=== PATIENT | female | born 1960 | race Caucasian/White ===

== ENCOUNTER → 2020-01-07 | Outpatient (CLI) | payer BC ==
[2020-01-07 13:04] LABS: Basophils # (A) 0.1 k/uL (0-0.2); Basophils % (A) 1 %; Eosinophils # (A) 0.1 k/uL (0-0.7); Eosinophils % (A) 1 %; HCT 45.8 % (34.0-46.0); HGB 15.5 gm/dL (11.4-16.0); Lymphocytes # (A) 0.6 k/uL (1.0-4.8); Lymphocytes % (A) 10 %; MCH 30.5 pg (25.0-35.0); MCHC 33.9 g/dL (31.0-37.0); MCV 90.1 fL (80.0-100.0); Mean Platelet Volume 6.9; Monocytes # (A) 0.4 k/uL (0-1.0); Monocytes % (A) 7 %; Neutrophils # (A) 4.7 k/uL (1.3-7.7); Neutrophils % (A) 78 %; Platelet Count 274 k/uL (150-450); RBC 5.08 m/uL (3.80-5.40); RDW 12.8 % (11.5-15.5)
--- NOTE | 2020-01-07 13:04 | US ---
EXAMINATION TYPE: US thyroid st tissue head/neck DATE OF EXAM: 01/07/2020 COMPARISON: NONE CLINICAL HISTORY: E04.9 Nontoxic goiter, unspecified. GLAND SIZE: Right Lobe: 5.0 x 1.6 x 1.6 cm Overall Parenchyma: homogenous Left Lobe: 4.8 x 1.0 x 1.6 cm Overall Parenchyma: homogeneous Isthmus Thickness: 0.3 cm NODULES RIGHT: # of nodules measured on right: 0 LEFT: # of nodules measured on left: 0 ISTHMUS: # of nodules measured in the isthmus: 0 Bilateral neck scanned, no evidence of lymphadenopathy. IMPRESSION: Mildly enlarged thyroid gland without discrete nodule.
[2020-01-07 13:18] LABS: ALT 13 U/L (4-34); AST 21 U/L (14-36); African American GFR (CKD) >90 (>60 ml/min/1.73 sqM); Albumin 4.3 g/dL (3.5-5.0); Alkaline Phosphatase 48 U/L (38-126); Anion Gap 7 mmol/L; Blood Urea Nitrogen 14 mg/dL (7-17); Calcium 9.9 mg/dL (8.4-10.2); Carbon Dioxide 27 mmol/L (22-30); Chloride 103 mmol/L (98-107); Glucose 86 mg/dL (74-99); Non-African American GFR(CKD) >90 (>60 ml/min/1.73 sqM); Potassium 4.1 mmol/L (3.5-5.1); Sodium 137 mmol/L (137-145); Total Bilirubin 0.6 mg/dL (0.2-1.3)
[2020-01-07 13:54] LABS: Erythrocyte Sedimentation Rate 6 mm/hr (0-20)
[2020-01-07 19:51] LABS: Thyroid Peroxidase Antibodies 30.1 U/mL (0.0-60.0)
== END | disposition home or self-care (01) ==
LOC: RADUSWWP 11:37
PROVIDERS: ATTEND Allergy & Immunology
DX: E04.9 Nontoxic goiter, unspecified (principal); L50.8 Other urticaria
CPT/HCPCS: 36415; 76536; 80053; 82785; 85025; 85652; 86376; 86800

== ENCOUNTER → 2021-09-29 | Outpatient (CLI) | payer BC ==
--- NOTE | 2021-09-30 01:50 | MR ---
EXAMINATION TYPE: MR shoulder LT wo con DATE OF EXAM: 09/29/2021 COMPARISON: None HISTORY: Lt shoulder and arm pain x3 months Multiplanar multiecho imaging of the left shoulder without contrast. There is hypertrophic spurring at the AC joint and mild subacromial impingement. The supraspinatus te ndon is slightly thickened with increased signal over the top of the humeral head. No full thickness tear. There is tiny amount of fluid in the subdeltoid space. The biceps tendon is intact. The glenoid pierre appear intact. Subscapularis tendon is intact. There i s no evidence of a bony destructive process. Humeral head shows a 5 mm degenerative cyst at the great er tuberosity. IMPRESSION: Small intrasubstance tear of the supraspinatus tendon at the greater tuberosity of the humerus. No fu ll-thickness tear. Minimal subacromial impingement.
== END | disposition home or self-care (01) ==
LOC: RADMRIMAIN 13:02
PROVIDERS: ATTEND Orthopaedic Surgery
DX: M75.102 Unspecified rotator cuff tear or rupture of left shoulder, not specified as traumatic (principal)

== ENCOUNTER 2021-11-17 06:42 | Day surgery (SDC) | payer BC ==
[2021-11-15 15:45] VITALS: BMI 24.8
--- NOTE | 2021-11-16 17:19 | HP ---
HISTORY AND PHYSICAL DATE OF SURGERY: 11/17/2021 Kristyn Olvera is a 61-year-old patient seen with progressive left shoulder pain. We discussed options for treatment. She elected to proceed with left shoulder arthroscopy. Consent was obtained. PAST MEDICAL HISTORY: Noncontributory. PAST SURGICAL HISTORY: Hysterectomy. DAILY MEDICATIONS: Vitamins. ALLERGIES: NONE. SOCIAL HISTORY: She denies tobacco use. PHYSICAL EVALUATION OF THE LEFT SHOULDER: Flexion is 130 degrees, abduction is 110 degrees. External rotation is 40 degrees with some weakness. There is tenderness along the anterolateral acromion and rotator cuff insertion site to include the bicipital groove. Impingement is positive at 90 degrees. Cross-body adduction sign is positive. Drop-arm sign is positive. Her distal neurovascular exam is intact. Radiographs of the left shoulder reveal a type 2 anterior acromion, evidence for acromioclavicular joint osteoarthritis and cystic changes of the greater tuberosity. MRI left shoulder revealed a partial-thickness rotator cuff tendon tear along with acromioclavicular joint osteoarthritis and degenerative cyst formation. IMPRESSION: 1. Left shoulder impingement with partial rotator cuff tear. 2. Left shoulder acromioclavicular joint osteoarthritis. PLAN: Left shoulder arthroscopy with subacromial decompression, possible arthroscopic rotator cuff repair, possible Greg procedure and debridement. MMODL / IJN: [id number] /
[~2021-11-17 06:42] MED LIST: DEXAMETHASONE SOD PHOSPHATE 4 MG/ML 1 ML VIAL IV ONE; LACTATED RINGERS 1,000 ML IV SCH; ONDANSETRON 4 MG/2 ML VIAL IVP ONE
[2021-11-17] MEDS ORDERED: HYDROmorphone 0.5 MG/0.5 ML SYRINGE IVP PRN (07:00)
[2021-11-17] MEDS ORDERED: MIDAZOLAM 2 MG/2 ML VIAL IVP ONE (08:09)
[2021-11-17] MEDS ORDERED: LIDOCAINE 1% INJ 10MG/ML (20 ML MDV) ONE (08:25)
[2021-11-17] MEDS ORDERED: fentaNYL (PF) 50 MCG/ML 2 ML AMP ONE (08:25)
[2021-11-17] MEDS ORDERED: SUCCINYLCHOLINE CHLORIDE 100 MG/5 ML SYR IV ONE (08:25)
[2021-11-17] MEDS ORDERED: PROPOFOL 10 MG/ML 20 ML VIAL IV ONE (08:25)
[2021-11-17] MEDS ORDERED: ROPIVACAINE 5 MG/ML 30 ML VIAL ONE (08:25)
[2021-11-17] MEDS ORDERED: KETOROLAC 15 MG/ML 1 ML VIAL ONE (08:25)
--- NOTE | 2021-11-17 09:43 | P.OP ---
Date of Procedure: 11/17/21 Preoperative Diagnosis: Left shoulder impingement Postoperative Diagnosis: 1. Left shoulder rotator cuff tear 2. Left shoulder impingement Procedure(s) Performed: 1. Left shoulder arthroscopic rotator cuff repair 2. Left shoulder arthroscopic subacromial decompression Implants: 14.75 Arthrex a lock anchor Anesthesia: GETA, regional (Interscalene block) Surgeon: Jose Schulte Equipment Maintenance Tech #1: Akhil Rausch Estimated Blood Loss (ml): 11 Pathology: none sent Condition: stable Disposition: PACU Indications for Procedure: 61-year-old patient seen with progressive left shoulder pain. After having treatment options discussed, she elected to proceed with arthroscopy. Operative Findings: see description of procedure Description of Procedure: Patient underwent an interscalene block by department of anesthesia. The patient was then taken to the operative suite. The patient underwent a general anesthetic by the department of anesthesia. The patient was placed into a lateral position and secured. There was appropriate padding of the bony prominence. Left shoulder was then prepped and draped in normal sterile orthopedic fashion. We placed the extremity in 10 pounds of longitudinal traction. A posterior incision was now made for a posterior working portal site. The trocar and cannula were inserted into the glenohumeral joint. Arthroscopy was initiated. Spinal needle was now inserted anteriorly, to ascertain the anterior working portal site. An incision was now made in that area, a trocar was inserted followed by a probe. There was some grade 1 chondromalacia changes involving the glenohumeral joint without significant tearing present. The labrum was probed and it was found to be stable. The biceps was probed and found to be stable. Instruments were now removed from glenohumeral joint. Utilizing the posterior working portal site, the trocar and cannula were inserted into the subacromial space. Arthroscopy initiated. I made an incision 2 fingerbreadths lateral to the acromion. I introduced my trocar followed by my ArthroCare ablator. I now began ablating thick subacromial bursal tissue, which exposed the undersurface of the anterior acromion. There was diminished subacromial space. There was a very prominent anterior acromion. A motorized bur was introduced and a subacromial decompression was performed. I also excised some osteophytes off the inferior aspect of the distal clavicle. The AC joint was visualized and noted to be moderately arthritic, I did not think enough to warrant a Greg procedure. I now turned my attention to the rotator cuff tendon. There was some significant tearing along the anterior aspect of the distal supraspinatus. Upon probing the area was a full-thickness perforation present. I debrided the margins getting down to stable tendon tissue. The defect measured 11.5 cm it was freely mobile over the footprint. I abraded the footprint with a motorized bur. With the assistance of Olivier CONNOR I passed 2 everted mattress sutures through good bites of rotator cuff tendon. I now punched a hole in the footprint area for insertion of an anchor. I now with the assistance of Olivier CONNOR passed all 4 limbs of suture through the eyelet of a 4.75 Arthrex swivel lock anchor. I placed the eyelet into the pre-punched hole. I held it there in position while Olivier CONNOR tension all suture limbs and deployed the anchor with good fixation noted. All residual suture limbs were now clipped. We had good compression of the tendon along the entire footprint. Instruments now removed from the portal sites. All portal sites were approximated with nylon suture. Sterile dressings were applied followed by a shoulder sling. Akhil CONNOR assisted in this case. The patient was awakened, transferred to a bed, and taken to recovery in stable condition.
[2021-11-17 09:44] VITALS: TEMP 96.9
[2021-11-17 10:15] VITALS: RESP 16
[2021-11-17 10:36] VITALS: BP 119/80; PULSE 70
--- NOTE | 2021-11-17 11:14 | P.ANPRN ---
Procedure Note - Anesthesia - Nerve Block Performed Left Interscalene Time Out Performed: Yes (08:) Date of Procedure: 11/17/21 Procedure Start Time: Procedure Stop Time: Location of Patient: PreOp Indication: Acute Post-Operative Pain, Requested by Surgeon (DR Anne) Sedation Type: Sedate with meaningful contact maintained Preparation: Sterile Prep Position: Supine Catheter: None Needle Types: Pajunk Needle Gauge: Other (see comment) (22g) Ultrasound used to visualize needle placement: Yes Ultrasound used to observe medication spread: Yes Injectate: 0.5% Ropivacaine (see comment for volume) (20cc) Blood Aspirated: No Pain Paresthesia on Injection Noted: No Resistance on Injection: Normal Image Stored and Saved: Yes Events: Uneventful and Well Tolerated
== END 2021-11-17 11:28 | disposition home or self-care (01) ==
LOC: OR 06:42
PROVIDERS: ATTEND Orthopaedic Surgery
DX: M75.112 Incomplete rotator cuff tear or rupture of left shoulder, not specified as traumatic (principal); G89.18 Other acute postprocedural pain; Z79.899 Other long term (current) drug therapy
CPT/HCPCS: 29824; 29826; 29827; 64415; 76942; C1713; J2250; J1100; J2405; J0690; J2001; J3010; J2795; J1885; J0330; J2704

== ENCOUNTER → 2023-10-16 | Outpatient (CLI) | payer BC ==
[2023-10-16 16:04] LABS: Basophils # (A) 0.07 X 10*3/uL (0.00-0.10); Basophils % (A) 1.1 %; Eosinophils # (A) 0.07 X 10*3/uL (0.04-0.35); Eosinophils % (A) 1.1 %; HCT 41.8 % (37.2-46.3); HGB 14.7 g/dL (12.0-15.0); Lymphocytes # (A) 0.72 X 10*3/uL (0.90-5.00); Lymphocytes % (A) 11.5 %; MCH 32.5 pg (27.0-32.0); MCHC 35.2 g/dL (32.0-37.0); MCV 92.3 FL (80.0-97.0); Mean Platelet Volume 9.7 FL (9.5-12.2); Monocytes # (A) 0.55 X 10*3/uL (0.20-1.00); Monocytes % (A) 8.8 %; NRBC Per 100 WBC 0 X 10*3/uL (0.00-0.01); Neutrophils # (A) 4.84 X 10*3/uL (1.80-7.70); Platelet Count 290 X 10*3/uL (140-440); RBC 4.53 X 10*6/uL (4.10-5.20); WBC 6.28 X 10*3/uL (4.50-10.00)
[2023-10-16 16:24] LABS: Anion Gap 8.3 mmol/L (4.00-12.00); Carbon Dioxide 27.7 mmol/L (21.6-31.8); Potassium 4.4 mmol/L (3.5-5.5)
== END | disposition home or self-care (01) ==
LOC: LABPAT 09:23
PROVIDERS: ATTEND Orthopaedic Surgery
DX: Z01.818 Encounter for other preprocedural examination (principal); M75.41 Impingement syndrome of right shoulder; R94.31 Abnormal electrocardiogram [ECG] [EKG]
CPT/HCPCS: 36415; 80051; 85025; 93005

== ENCOUNTER 2023-11-02 05:39 | Day surgery (SDC) | payer BC ==
--- NOTE | 2023-11-01 20:14 | HP ---
HISTORY AND PHYSICAL DATE OF SURGERY: 11/02/2023. HISTORY OF PRESENT ILLNESS: Kristyn Olvera is a 63-year-old patient, seen with progressive right shoulder pain. We discussed options regarding treatment. She elected to proceed with right shoulder arthroscopy. Consent was obtained. PAST MEDICAL HISTORY: Noncontributory. SURGICAL HISTORY: Hysterectomy. DAILY MEDICATIONS: 1. Motrin. 2. Vitamins. ALLERGIES: None reported. SOCIAL HISTORY: She denies tobacco use. PHYSICAL EVALUATION OF THE RIGHT SHOULDER: Flexion is 150 degrees, abduction 130 degrees. External rotation is 40 degrees with some pain and weakness. She has tenderness along the anterolateral acromion, rotator cuff insertion site, and biceps tendon area. Impingement is positive at 100 degrees. Cross-body adduction sign is positive. Drop-arm sign is positive. Distal neurovascular exam is intact IMAGING STUDIES: Right shoulder radiographs revealed a type 3 acromion, mild acromioclavicular joint osteoarthritis and cystic changes of the tuberosity. A right shoulder MRI revealed rotator cuff tear, partial long head biceps tendon tear, acromioclavicular joint osteoarthritis and impingement. IMPRESSION: 1. Right shoulder impingement with rotator cuff tear. 2. Right shoulder acromioclavicular joint osteoarthritis. 3. Right shoulder partial long head biceps tendon tear. PLAN: Right shoulder arthroscopy with subacromial decompression, rotator cuff repair, Greg procedure, biceps tenodesis, and debridement. MMODL / IJN: [id number] /
[2023-11-02] MEDS ORDERED: ONDANSETRON 4 MG/2 ML VIAL IVP ONE (05:49)
[2023-11-02] MEDS ORDERED: DEXAMETHASONE SOD PHOSPHATE 4 MG/ML 1 ML VIAL IV ONE (05:49)
[2023-11-02] MEDS ORDERED: LIDOCAINE 1% (10MG/ML) FOR IV START INTRADERMA PRN (05:49)
[2023-11-02] MEDS: DEXAMETHASONE SOD PHOSPHATE 4 MG/ML 1 ML VIAL IVP ONE (06:45)
[2023-11-02] MEDS: LACTATED RINGERS 1,000 ML IV SCH (06:45)
[2023-11-02] MEDS: ONDANSETRON 4 MG/2 ML VIAL IVP ONE (06:45)
[2023-11-02] MEDS: SCOPOLAMINE 1 MG/72 HR PATCH TRANSDERM ONE (06:45)
[2023-11-02] MEDS: MIDAZOLAM 2 MG/2 ML VIAL IVP ONE (06:52)
[2023-11-02] MEDS: fentaNYL (PF) 50 MCG/1 ML VIAL IVP ONE (06:52)
[2023-11-02] MEDS ORDERED: HYDROmorphone 0.5 MG/0.5 ML SYRINGE IVP PRN (07:00)
[2023-11-02] MEDS ORDERED: MIDAZOLAM 2 MG/2 ML VIAL IV PRN (07:00)
[2023-11-02] MEDS ORDERED: SUCCINYLCHOLINE CHLORIDE 200 MG/10 ML VIAL IV ONE (07:22)
[2023-11-02] MEDS ORDERED: PROPOFOL 10 MG/ML 20 ML VIAL IV ONE (07:22)
[2023-11-02] MEDS ORDERED: DEXAMETHASONE SOD PHOSPHATE 4 MG/ML 1 ML VIAL ONE (07:22)
[2023-11-02] MEDS ORDERED: LIDOCAINE 1% INJ 10MG/ML (20 ML MDV) ONE (07:22)
[2023-11-02] MEDS ORDERED: ROPIVACAINE 5 MG/ML 30 ML VIAL ONE (07:22)
[2023-11-02] MEDS ORDERED: ePHEDrine 50 MG/ML 1 ML VIAL ONE (07:22)
--- NOTE | 2023-11-02 07:51 | P.ANPRN ---
Procedure Note - Anesthesia - Nerve Block Performed Right Interscalene Single Time Out Performed: Yes Date of Procedure: 11/02/23 Procedure Start Time: 06:51 Procedure Stop Time: 06:58 Location of Patient: PreOp Indication: Acute Post-Operative Pain, Requested by Surgeon Sedation Type: Sedate with meaningful contact maintained Preparation: Sterile Prep Position: Supine Needle Types: Pajunk Needle Gauge: 21 Ultrasound used to visualize needle placement: Yes Ultrasound used to observe medication spread: Yes Injectate: 0.5% Ropivacaine (see comment for volume) (Ropivacaine 0.5% 25 ml + 4 mg Dexamethasone) Blood Aspirated: No Pain Paresthesia on Injection Noted: No Resistance on Injection: Normal Image Stored and Saved: Yes Events: Uneventful and Well Tolerated
--- NOTE | 2023-11-02 09:11 | P.OP ---
Date of Procedure: 11/02/23 Preoperative Diagnosis: Right shoulder impingement Postoperative Diagnosis: 1. Right shoulder rotator cuff tear 2. Right shoulder impingement 3. Right shoulder acromioclavicular joint osteoarthritis 4. Right shoulder partial long head biceps tendon tear Procedure(s) Performed: 1. Right shoulder arthroscopic rotator cuff repair 2. Right shoulder arthroscopic subacromial decompression 3. Right shoulder arthroscopic Greg procedure 4. Right shoulder arthroscopic biceps tenotomy Implants: 3Arthrex 4.75 swivel lock anchors 1Arthrex 5.5 swivel lock anchor Anesthesia: GETA, regional (Interscalene block) Surgeon: Jose Schulte [employer] Project Lead #1: Akhil Rausch Estimated Blood Loss (ml): 10 Pathology: none sent Condition: stable Disposition: PACU Indications for Procedure: 63-year-old patient seen with progressive right shoulder pain. After treatment options were discussed, she elected to proceed with arthroscopy. Operative Findings: See description of procedure Description of Procedure: Patient underwent an interscalene block by department of anesthesia. The patient was then taken to the operative suite. The patient underwent a general anesthetic by the department of anesthesia. The patient was placed into a lateral position and secured. There was appropriate padding of the bony prominence. Right shoulder was then prepped and draped in normal sterile orthopedic fashion. We placed the extremity in 10 pounds of longitudinal traction. A posterior incision was now made for a posterior working portal site. The trocar and cannula were inserted into the glenohumeral joint. Arthroscopy was initiated. Spinal needle was now inserted anteriorly, to ascertain the anterior working portal site. An incision was now made in that area, a trocar was inserted followed by a probe. There was some partial tearing and hyperemia along the biceps tendon. There were grade I chondromalacia changes along the inferior aspect of glenoid fossa. The labrum was probed and was found to be stable. There was an obvious large rotator cuff tear present. I performed arthroscopic biceps tenotomy. I again probed the labrum and it was stable. Instruments were now removed from the glenohumeral joint. Utilizing the posterior working portal site, the trocar and cannula were inserted into the subacromial space. Arthroscopy initiated. I made an incision 2 fingerbreadths lateral to the acromion. I introduced my trocar followed by my ArthroCare ablator. I now began ablating thick subacromial bursal tissue, which exposed the undersurface of the anterior acromion. There was diminished subacromial space. There was a very prominent anterior acromion. A motorized bur was introduced and a subacromial decompression was performed. I also excised some osteophytes off the inferior aspect of the distal clavicle. The AC joint was visualized and noted to be fairly arthritic. The motorized bur was introduced in the anterior portal site and a Greg procedure was performed without difficulty, decompressing the AC joint nicely. I turned my attention to the rotator cuff. There was a 2.53 cm rotator cuff tear. I debrided the margins getting down to stable tendon tissue. I introduced my motorized bur and abraded the footprint area, getting some petechial bleeding. I now made an accessory portal site off the lateral aspect of the acromion. I punched 2 holes medial for medial row fixation with the assistance of Olivier CONNOR carefully tapping the punch with a mallet as I held the punch and the camera. I now introduced both anchors into the pre-punched holes and Olivier CONNOR tapped them with the mallet as I held anchors and the camera. Olivier CONNOR now screwed the anchors in place a while I held the anchor guide and camera. All 8 limbs of suture were now passed through good bites of rotator cuff tendon. I now punched 2 holes for lateral row fixation again I held the punch and camera while Olivier CONNOR used a mallet to tap in the punch. We now passed sutures through both anchors and individually I introduced the anchors into the pre- punch holes I held the anchor guide in position with one hand holding the camera with the other hand while Olivier CONNOR tensioned the sutures and screwed in the anchors one at a time. All residual suture limbs were now clipped. We had good compression of the tendon along the entire footprint. Instruments now removed from the portal sites. All portal sites were approximated with nylon suture. Sterile dressings were applied followed by a shoulder immobilizer. Akhil CONNOR assisted in this complex case. The patient was awakened, transferred to a bed, and taken to recovery in stable condition.
[2023-11-02 09:39] VITALS: TEMP 97.4
[2023-11-02 10:20] VITALS: RESP 18
[2023-11-02 10:59] VITALS: BP 118/76; PULSE 74
== END 2023-11-02 10:52 | disposition home or self-care (01) ==
LOC: OR 05:39
PROVIDERS: ATTEND Orthopaedic Surgery
DX: S46.111A Strain of muscle, fascia and tendon of long head of biceps, right arm, initial encounter (principal); M75.41 Impingement syndrome of right shoulder; M19.011 Primary osteoarthritis, right shoulder; M75.101 Unspecified rotator cuff tear or rupture of right shoulder, not specified as traumatic; Z86.711 Personal history of pulmonary embolism; Z79.899 Other long term (current) drug therapy; Z88.5 Allergy status to narcotic agent; X58.XXXA Exposure to other specified factors, initial encounter
CPT/HCPCS: 64415; 29824; 29826; 29827; C1894; C1713; J2250; J0330; J1100; J0690; J2405; J2001; J2795; J2704; J3010